=== PATIENT | male | born 1955 | race African-American/Black ===

== ENCOUNTER 2019-07-11 15:29 | Inpatient (IN) | payer OTHER ==
[2019-07-11 19:03] VITALS: BMI 29.5
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
[2019-07-11] MEDS ORDERED: NICOTINE POLACRILEX 2 MG GUM BUC PRN (21:47)
[2019-07-11] MEDS ORDERED: chlordiazePOXIDE HCL 10 MG CAPSULE PO PRN (21:47)
[2019-07-11] MEDS ORDERED: MAG HYDROX/AL HYDROX/SIMETH 30 ML UNIT-DOSE CUP PO PRN (21:47)
[2019-07-11] MEDS ORDERED: MAGNESIUM CITRATE 300 ML BOTTLE PO PRN (21:47)
[2019-07-11] MEDS ORDERED: BISMUTH SUBSALICYLATE 524 MG/30 ML UD PO PRN (21:47)
[2019-07-11] MEDS ORDERED: MAGNESIUM HYDROX 2400MG/30ML ORAL SUSPENSION 30 ML CUP PO PRN (21:47)
[2019-07-11] MEDS ORDERED: METHOCARBAMOL 500 MG TABLET PO PRN (21:47)
[2019-07-11] MEDS ORDERED: METHADONE HCL 10 MG TABLET (FOR DETOX USE ONLY) PO ONE (21:47)
[2019-07-11] MEDS ORDERED: MENTHOL/PHENOL 1 EACH UD MM PRN (21:47)
[2019-07-11] MEDS ORDERED: ACETAMINOPHEN 325 MG TABLET (FP) PO PRN ×2 (21:47)
[2019-07-11] MEDS ORDERED: ARTIFICIAL TEARS (POLYVINYL ALCOHOL) OPTH DROPS OU PRN (22:00)
[2019-07-12] MEDS: CEPHALEXIN MONOHYDRATE 500 MG CAPSULE (UD) PO SCH ×5 (00:03→23:34)
[2019-07-12] MEDS: MONTELUKAST NA 10 MG TABLET PO SCH ×2 (00:03→22:39)
[2019-07-12] MEDS: THIAMINE HCL 100 MG TABLET (FP) PO SCH ×2 (00:03→22:39)
[2019-07-12] MEDS: valACYclovir HCL 500 MG TABLET (FP) PO SCH ×3 (00:03→22:39)
[2019-07-12] MEDS: SENNOSIDES 8.6MG TABLET (FP) PO SCH ×2 (00:05→22:39)
[2019-07-12] MEDS: OMEGA-3 ACID ETHYL ESTERS (FATTY-ACIDS) 1 GM CAPSULE (FP) PO SCH ×3 (01:30→22:39)
[2019-07-12] MEDS: chlordiazePOXIDE HCL 25 MG CAPSULE PO SCH ×3 (05:17→22:40)
[2019-07-12] MEDS ORDERED: METHADONE HCL 5 MG TABLET (FOR DETOX USE ONLY) PO ONE (10:00)
[2019-07-12] MEDS: ASPIRIN 81 MG CHEWABLE TABLETS PO SCH (10:05)
[2019-07-12] MEDS: PANTOPRAZOLE 40 MG TABLET (FP) PO SCH (10:05)
[2019-07-12] MEDS: PRENATAL VITAMINS W/ FOLIC ACID TABLET (FP) PO SCH (10:05)
[2019-07-12] MEDS: NICOTINE 14 MG/24 HOURS TOPICAL PATCH TD SCH (10:08)
--- NOTE | 2019-07-12 10:34 | EKG ---
Test Reason : Blood Pressure : / mmHG Vent. Rate : 092 BPM Atrial Rate : 092 BPM P-R Int : 114 ms QRS Dur : 080 ms QT Int : 336 ms P-R-T Axes : 038 -06 -42 degrees QTc Int : 415 ms NORMAL SINUS RHYTHM WITH SINUS ARRHYTHMIA NONSPECIFIC ST AND T WAVE ABNORMALITY ABNORMAL ECG NO PREVIOUS ECGS AVAILABLE Confirmed by IMELDA OSWALD MD ([id number]) on 07/12/2019 10:33:52 AM Referred By: NEIL MERCADO Confirmed By:IMELDA OSWALD MD
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
[2019-07-12 11:46] LABS: HEMATOCRIT 39.9 % (35.4-49); HEMOGLOBIN 13.6 GM/dL (11.7-16.9); MCHC 34.1 g/dl (32.0-35.9); MEAN CELL VOLUME 93.9 fl (80-96); MEAN PLT VOLUME 8.9 fl (7.5-11.1); PLATELET COUNT 155 K/MM3 (134-434); RBC 4.25 M/mm3 (4.00-5.60); WHITE BLOOD COUNT 6.2 K/mm3 (4.0-10.0)
[2019-07-12 11:49] LABS: BILIRUBIN,TOTAL 0.5 mg/dL (0.2-1); BLOOD UREA NITROGEN 10.7 mg/dL (7-18); CALCIUM 8.8 mg/dL (8.5-10.1); CREATININE 0.8 mg/dL (0.55-1.3); POTASSIUM 3.8 mmol/L (3.5-5.1); TOT PROT 5.9 g/dl (6.4-8.2)
[2019-07-12] MEDS: LOSARTAN 50MG/HCTZ 12.5MG 1 TAB (FP) PO SCH (12:33)
[2019-07-12] MEDS: BUDESONIDE/FORMETEROL FUMARATE 160/4.5 mcg INHALER IH SCH ×2 (12:34→22:40)
[2019-07-12] MEDS: DULoxetine HCL 30 MG CAPSULE.DR PO SCH ×2 (12:34→22:40)
[2019-07-12] MEDS: IPRATROPIUM BR 0.02% 0.5 MG/2.5 ML VIAL.NEB. NEB SCH ×2 (13:15→20:34)
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
[2019-07-12] MEDS: GABAPENTIN 300 MG CAPSULE (FP) PO SCH ×2 (14:14→22:39)
[2019-07-12] MEDS ORDERED: GABAPENTIN 300 MG CAPSULE (FP) PO SCH (22:00)
[2019-07-12] MEDS: MELATONIN 5 MG TABLETS PO PRN (22:44)
[2019-07-13] MEDS ORDERED: chlordiazePOXIDE HCL 10 MG CAPSULE PO PRN
[2019-07-13] MEDS: chlordiazePOXIDE 5 MG CAPSULE PO SCH ×3 (05:17→20:59)
[2019-07-13] MEDS: CEPHALEXIN MONOHYDRATE 500 MG CAPSULE (UD) PO SCH ×4 (05:17→23:44)
[2019-07-13] MEDS: GABAPENTIN 300 MG CAPSULE (FP) PO SCH ×3 (05:17→22:24)
[2019-07-13] MEDS ORDERED: METHADONE HCL 10 MG TABLET (FOR DETOX USE ONLY) PO ONE (10:00)
[2019-07-13] MEDS: BUDESONIDE/FORMETEROL FUMARATE 160/4.5 mcg INHALER IH SCH ×2 (10:04→22:24)
[2019-07-13] MEDS: valACYclovir HCL 500 MG TABLET (FP) PO SCH ×2 (10:05→22:24)
[2019-07-13] MEDS: PRENATAL VITAMINS W/ FOLIC ACID TABLET (FP) PO SCH (10:05)
[2019-07-13] MEDS: DULoxetine HCL 30 MG CAPSULE.DR PO SCH ×2 (10:05→22:23)
[2019-07-13] MEDS: IPRATROPIUM BR 0.02% 0.5 MG/2.5 ML VIAL.NEB. NEB SCH ×2 (10:05→22:23)
[2019-07-13] MEDS: OMEGA-3 ACID ETHYL ESTERS (FATTY-ACIDS) 1 GM CAPSULE (FP) PO SCH ×2 (10:05→22:23)
[2019-07-13] MEDS: PANTOPRAZOLE 40 MG TABLET (FP) PO SCH (10:05)
[2019-07-13] MEDS: LOSARTAN 50MG/HCTZ 12.5MG 1 TAB (FP) PO SCH (10:05)
[2019-07-13] MEDS: ASPIRIN 81 MG CHEWABLE TABLETS PO SCH (10:06)
[2019-07-13] MEDS: NICOTINE 14 MG/24 HOURS TOPICAL PATCH TD SCH (10:17)
--- NOTE | 2019-07-13 13:33 | PN ---
[facility] CIWA - CIWA Score Nausea/Vomitin-Mild Nausea/No Vomiting Muscle Tremors: 2 Anxiety: 2 Agitation: 2 Paroxysmal Sweats: 2 Orientation: 0-Oriented Tacttile Disturbances: 0-None Auditory Disturbances: 0-None Visual Disturbances: 1-Very Mild Sensitivity Headache: 2-Mild CIWA-Ar Total Score: 12 [facility] COWS - Scale Resting Pulse: 2= [place] 101-120 Sweatin= No chills or Flushing Restless Observation: 1= Difficult to Sit Still Pupil Size: 1= Pupils >than Normal Bone or Joint Aches: 2= Severe Diffuse Aches Runny Nose/ Eye Tearin= Runny Nose/Eyes GI Upset > 30mins: 1= Stomach Cramp Tremor Observation of Outstretched Hands: 2= Slight Tremor Visible Yawning Observation: 1= 1-2x During Session Anxiety or Irritability: 2=Irritable/Anxious Goose Flesh Skin: 0=Smooth Skin COWS Score: 14 S Progress Note (SOAP) Subjective: alert,irritable,anxious,interrupted sleep,pain in the body and abck Objective: 07/13/19 13:31 Vital Signs Temperature 97.3 F L 07/13/19 09:42 Pulse Rate 107 H 07/13/19 09:42 Respiratory Rate 19 07/13/19 09:42 Blood Pressure 138/88 07/13/19 09:42 O2 Sat by Pulse Oximetry (%) Assessment: 07/13/19 13:32 withdrawal symptom Plan: continue detox methadone and librium regimen
[2019-07-13] MEDS: SENNOSIDES 8.6MG TABLET (FP) PO SCH (22:23)
[2019-07-13] MEDS: MONTELUKAST NA 10 MG TABLET PO SCH (22:24)
[2019-07-13] MEDS: THIAMINE HCL 100 MG TABLET (FP) PO SCH (22:24)
[2019-07-14] MEDS: chlordiazePOXIDE HCL 10 MG CAPSULE PO SCH ×3 (05:14→21:58)
[2019-07-14] MEDS: CEPHALEXIN MONOHYDRATE 500 MG CAPSULE (UD) PO SCH ×3 (05:14→17:06)
[2019-07-14] MEDS: GABAPENTIN 300 MG CAPSULE (FP) PO SCH ×3 (05:15→21:58)
[2019-07-14] MEDS ORDERED: METHADONE HCL 5 MG TABLET (FOR DETOX USE ONLY) PO ONE (06:00)
[2019-07-14] MEDS: LOSARTAN 50MG/HCTZ 12.5MG 1 TAB (FP) PO SCH (09:31)
[2019-07-14] MEDS: BUDESONIDE/FORMETEROL FUMARATE 160/4.5 mcg INHALER IH SCH ×2 (09:31→21:57)
[2019-07-14] MEDS: OMEGA-3 ACID ETHYL ESTERS (FATTY-ACIDS) 1 GM CAPSULE (FP) PO SCH ×2 (09:31→21:58)
[2019-07-14] MEDS: DULoxetine HCL 30 MG CAPSULE.DR PO SCH ×2 (09:31→21:59)
[2019-07-14] MEDS: ASPIRIN 81 MG CHEWABLE TABLETS PO SCH (09:31)
[2019-07-14] MEDS: IBUPROFEN 400 MG TABLET (FP) PO PRN ×2 (09:32→16:28)
[2019-07-14] MEDS: NICOTINE 14 MG/24 HOURS TOPICAL PATCH TD SCH (09:32)
[2019-07-14] MEDS: PANTOPRAZOLE 40 MG TABLET (FP) PO SCH (09:33)
[2019-07-14] MEDS: valACYclovir HCL 500 MG TABLET (FP) PO SCH ×2 (09:33→21:58)
[2019-07-14] MEDS: PRENATAL VITAMINS W/ FOLIC ACID TABLET (FP) PO SCH (09:33)
[2019-07-14] MEDS: IPRATROPIUM BR 0.02% 0.5 MG/2.5 ML VIAL.NEB. NEB SCH ×2 (09:34→22:10)
--- NOTE | 2019-07-14 15:06 | PN ---
[facility] CIWA - CIWA Score Nausea/Vomitin-No Nausea/No Vomiting Muscle Tremors: 2 Anxiety: 4-Mod. Anxious/Guarded Agitation: 3 Paroxysmal Sweats: 1-Minimal Palms Moist Orientation: 0-Oriented Tacttile Disturbances: 0-None Auditory Disturbances: 0-None Visual Disturbances: 0-None Headache: 0-None Present CIWA-Ar Total Score: 10 [facility] COWS - Scale Resting Pulse: 2= [place] 101-120 Sweatin= Chills/Flushing Restless Observation: 0= Sits Still Pupil Size: 0= Normal to Room Light Bone or Joint Aches: 4=Acute Joint/Muscle Pain Runny Nose/ Eye Tearin= None GI Upset > 30mins: 0= None Tremor Observation of Outstretched Hands: 1= Tremor [place], Not Seen Yawning Observation: 0= None Anxiety or Irritability: 1=Feels Anxious/Irritable Goose Flesh Skin: 0=Smooth Skin COWS Score: 9 S Progress Note (SOAP) Subjective: C/o chronic knee pain, left>right and anxiety. Objective: 07/14/19 15:09 Vital Signs - 24 hr 07/13/19 07/13/19 07/14/19 17:55 21:32 00:30 Temperature 96.9 F L 97.1 F L Pulse Rate 95 H 101 H Respiratory 19 18 18 Rate Blood Pressure 132/82 131/73 07/14/19 07/14/19 07/14/19 03:30 06:04 09:07 Temperature 97.5 F L Pulse Rate 102 H Respiratory 18 18 18 Rate Blood Pressure 133/85 07/14/19 13:02 Temperature 99.2 F Pulse Rate 110 H Respiratory 18 Rate Blood Pressure 140/82 Laboratory Tests 07/12/19 07/12/19 07/12/19 07:30 07:30 07:30 WBC 6.2 RBC 4.25 Hgb 13.6 Hct 39.9 MCV 93.9 MCH 32.0 MCHC 34.1 RDW 13.0 Plt Count 155 MPV 8.9 Sodium 144 Potassium 3.8 Chloride 108 H Carbon Dioxide 31 Anion Gap 5 L BUN 10.7 Creatinine 0.8 Est GFR (CKD-EPI)AfAm 110.96 Est GFR (CKD-EPI)NonAf 95.74 Random Glucose 114 H Calcium 8.8 Total Bilirubin 0.5 AST 22 ALT 27 Alkaline Phosphatase 79 Total Protein 5.9 L Albumin 3.0 L RPR Titer Nonreactive Assessment: 07/14/19 15:10 withdrawal sx Plan: continue meth/ronnie detox taper March d/c tomorrow motrin prn for pain
[2019-07-14] MEDS: SENNOSIDES 8.6MG TABLET (FP) PO SCH (21:58)
[2019-07-14] MEDS: MONTELUKAST NA 10 MG TABLET PO SCH (21:58)
[2019-07-14] MEDS: THIAMINE HCL 100 MG TABLET (FP) PO SCH (21:58)
[2019-07-14] MEDS: MELATONIN 5 MG TABLETS PO PRN (22:00)
[2019-07-15] MEDS: CEPHALEXIN MONOHYDRATE 500 MG CAPSULE (UD) PO SCH ×2 (00:10→05:16)
[2019-07-15] MEDS ORDERED: chlordiazePOXIDE HCL 10 MG CAPSULE PO ONE (05:00)
[2019-07-15] MEDS: GABAPENTIN 300 MG CAPSULE (FP) PO SCH (05:16)
[2019-07-15 09:39] VITALS: BP 143/91; PULSE 107; TEMP 96.1
[2019-07-15] MEDS: LOSARTAN 50MG/HCTZ 12.5MG 1 TAB (FP) PO SCH (10:08)
[2019-07-15] MEDS: BUDESONIDE/FORMETEROL FUMARATE 160/4.5 mcg INHALER IH SCH (10:08)
[2019-07-15] MEDS: OMEGA-3 ACID ETHYL ESTERS (FATTY-ACIDS) 1 GM CAPSULE (FP) PO SCH (10:08)
[2019-07-15] MEDS: PRENATAL VITAMINS W/ FOLIC ACID TABLET (FP) PO SCH (10:08)
[2019-07-15] MEDS: DULoxetine HCL 30 MG CAPSULE.DR PO SCH (10:08)
[2019-07-15] MEDS: PANTOPRAZOLE 40 MG TABLET (FP) PO SCH (10:09)
[2019-07-15] MEDS: valACYclovir HCL 500 MG TABLET (FP) PO SCH (10:09)
[2019-07-15] MEDS: IPRATROPIUM BR 0.02% 0.5 MG/2.5 ML VIAL.NEB. NEB SCH (10:10)
[2019-07-15] MEDS: ASPIRIN 81 MG CHEWABLE TABLETS PO SCH (10:10)
[2019-07-15] MEDS: NICOTINE 14 MG/24 HOURS TOPICAL PATCH TD SCH (10:10)
[2019-07-15] MEDS: IBUPROFEN 400 MG TABLET (FP) PO PRN (10:12)
--- NOTE | 2019-07-15 11:21 | DS ---
[facility] Detox Discharge Summary Admission Date: 07/11/19 Discharge Date: 07/15/19 - History Present History: Alcohol Dependence, Opioid Dependence Additional Comments: 64 years old male first patient [facility] admission was admitted on 07/11/19 for alcohol and opiate withdrawal sx management doing well with libirum and methadone detox regimen patient questioning about reason for "stop" methadone discuss detox vs medication assisted treatment program Pertinent Past History: hypertension hiv asthma patient agrees to return to [facility] patient agrees to return to infectious disease specialist for HIV follow up - Physical Exam Results Vital Signs: Vital Signs Temperature 96.1 F L 07/15/19 09:37 Pulse Rate 107 H 07/15/19 09:37 Respiratory Rate 18 07/15/19 09:37 Blood Pressure 143/91 07/15/19 09:37 O2 Sat by Pulse Oximetry (%) Pertinent Admission Physical Exam Findings: alcohol and opiate withdrawal sx Vital Signs Temperature 96.1 F L 07/15/19 09:37 Pulse Rate 107 H 07/15/19 09:37 Respiratory Rate 18 07/15/19 09:37 Blood Pressure 143/91 07/15/19 09:37 O2 Sat by Pulse Oximetry (%) Laboratory Last Values WBC 6.2 K/mm3 (4.0-10.0) 07/12/19 07:30 RBC 4.25 M/mm3 (4.00-5.60) 07/12/19 07:30 Hgb 13.6 GM/dL (11.7-16.9) 07/12/19 07:30 Hct 39.9 % (35.4-49) 07/12/19 07:30 MCV 93.9 fl (80-96) 07/12/19 07:30 MCH 32.0 pg (25.7-33.7) 07/12/19 07:30 MCHC 34.1 g/dl (32.0-35.9) 07/12/19 07:30 RDW 13.0 % (11.9-15.9) 07/12/19 07:30 Plt Count 155 K/MM3 (134-434) 07/12/19 07:30 MPV 8.9 fl (7.5-11.1) 07/12/19 07:30 Sodium 144 mmol/L (136-145) 07/12/19 07:30 Potassium 3.8 mmol/L (3.5-5.1) 07/12/19 07:30 Chloride 108 mmol/L (98-107) H 07/12/19 07:30 Carbon Dioxide 31 mmol/L (21-32) 07/12/19 07:30 Anion Gap 5 MMOL/L (8-16) L 07/12/19 07:30 BUN 10.7 mg/dL (7-18) 07/12/19 07:30 Creatinine 0.8 mg/dL (0.55-1.3) 07/12/19 07:30 Est GFR (CKD-EPI)AfAm 110.96 07/12/19 07:30 Est GFR (CKD-EPI)NonAf 95.74 07/12/19 07:30 Random Glucose 114 mg/dL (74-106) H 07/12/19 07:30 Calcium 8.8 mg/dL (8.5-10.1) 07/12/19 07:30 Total Bilirubin 0.5 mg/dL (0.2-1) 07/12/19 07:30 AST 22 U/L (15-37) 07/12/19 07:30 ALT 27 U/L (13-61) 07/12/19 07:30 Alkaline Phosphatase 79 U/L (45-117) 07/12/19 07:30 Total Protein 5.9 g/dl (6.4-8.2) L 07/12/19 07:30 Albumin 3.0 g/dl (3.4-5.0) L 07/12/19 07:30 RPR Titer Nonreactive (NONREACTIVE) 07/12/19 07:30 lab noted patient is anxious about leaving the detox unit that no more methadone is available for him encourage the patient seeking medication assisted treatment program - Treatment Hospital Course: Detox Protocol Followed, Detoxed Safely, Responded well, Discharged Condition Good, Rehab Referral Accepted Patient has Accepted a [facility] Referral to: [facility] - Medication Discharge Medications: Ambulatory Orders Albuterol Sulfate Hfa 2 mcg PO Q4HWA 07/11/19 Aspirin [ASA -] 81 mg PO DAILY 07/11/19 Combivent Respimat 20-100 Mcg 1 puff PO QID 07/11/19 Descovy 200-25 mg Tablet (Nf) 1 tablet PO DAILY 07/11/19 Duloxetine HCl [Cymbalta] 30 mg PO BID 07/11/19 Fluticasone/Salmeterol [Advair 250-50 Diskus] 1 puff IH BID 07/11/19 Gabapentin [Neurontin] 300 mg PO TID 07/11/19 Ipratropium [place] [Atrovent Hfa] 2 puff IH QID 07/11/19 Losartan/Hydrochlorothiazide [Hyzaar 100-25 Tablet] 1 mg PO DAILY 07/11/19 Metoprolol ER-Hctz 25-12.5 mg 1 tablet PO DAILY 07/11/19 Montelukast Na [Singulair -] 10 mg PO HS 07/11/19 Multivitamin [Multiple Vitamins] 1 tablet PO DAILY 07/11/19 Olopatadine HCl [Pataday] 1 drop OU BID PRN 07/11/19 [place]-3 Acid Ethyl Esters [Lovaza -] 1 mg PO BID 07/11/19 Omeprazole 40 mg PO DAILY 07/11/19 Prezcobix 800 mg-150 mg Tablet 1 tablet PO DAILY 07/11/19 Sennosides [Senna] 2 tablet PO HS 07/11/19 Testosterone [Androgel] 5 gm TD DAILY 07/11/19 Valacyclovir HCl [Valtrex] 1 tablet PO BID 07/11/19 - Diagnosis (1) Alcohol dependence with uncomplicated withdrawal Current Visit: Yes Status: Acute (2) Opioid dependence with withdrawal Current Visit: Yes Status: Acute (3) Substance induced mood disorder Current Visit: Yes Status: Suspected (4) GERD (gastroesophageal reflux disease) Current Visit: Yes Status: Chronic Qualifiers: Esophagitis presence: without esophagitis Qualified Code(s): K21.9 - Gastro -esophageal reflux disease without esophagitis (5) History of HIV infection Current Visit: Yes Status: Chronic (6) History of asthma Current Visit: Yes Status: Chronic (7) Nicotine dependence, uncomplicated Current Visit: Yes Status: Acute Qualifiers: Nicotine product type: cigarettes Qualified Code(s): F17.210 - Nicotine dependence, cigarettes, uncomplicated - AMA Did Patient Leave Against Medical Advice: No
== END 2019-07-15 13:28 | disposition home or self-care (01) | DRG 773 ==
LOC: YASAS 15:29 → Y3N 22:26
PROVIDERS: ADMIT Surgery; ATTEND Surgery
PROC: HZ2ZZZZ Detoxification Services for Substance Abuse Treatment (ICD-10-PCS; principal; 2019-07-11)
DX: F10.230 Alcohol dependence with withdrawal, uncomplicated (principal); F11.23 Opioid dependence with withdrawal; F14.20 Cocaine dependence, uncomplicated; F12.20 Cannabis dependence, uncomplicated; F17.210 Nicotine dependence, cigarettes, uncomplicated; F19.282 Other psychoactive substance dependence with psychoactive substance-induced sleep disorder; F19.24 Other psychoactive substance dependence with psychoactive substance-induced mood disorder; F33.9 Major depressive disorder, recurrent, unspecified; Z21 Asymptomatic human immunodeficiency virus [HIV] infection status; K21.9 Gastro-esophageal reflux disease without esophagitis; Z87.09 Personal history of other diseases of the respiratory system
CPT/HCPCS: 36415; 80053; 85027; 86480; 86593; 93005; 93010; 94640